=== PATIENT | male | born 1975 | race Caucasian/White ===

== ENCOUNTER 2020-02-29 00:04 | Emergency (ER) | payer OTHER, BC ==
[2020-02-29] MEDS ORDERED: Diphtheria,Pertussis(Acell),Tetanus Vaccine 0.5 ML Syringe IM ONE (00:20)
--- NOTE | 2020-02-29 00:20 | EDM.PDOC ---
ED HPI GENERAL MEDICAL PROBLEM - General Stated Complaint: PINCHED FINGER AND CUT IT OPEN Time Seen by Provider: 02/29/20 00:15 Source of Information: Reports: Patient - History of Present Illness INITIAL COMMENTS - FREE TEXT/NARRATIVE: ED ambulatory, states pinched finger when ricki stand collapsed at work while working on a truck. Laceration to fingertip, right 4th. No other injury, states wearing gloves. Right Finger-Ring Pain Score (Numeric/FACES): 1 - Related Data Allergies Allergy/AdvReac Type Severity Reaction Status Date / Time ciprofloxacin Allergy Diarrhea Verified 02/29/20 00:22 Home Meds: Home Meds . [No Known Home Meds] 02/29/20 [History] ED ROS GENERAL - Review of Systems Review Of Systems: Comprehensive ROS is negative, except as noted in HPI. ED EXAM, SKIN/RASH Exam: See Below Exam Limited By: No Limitations General Appearance: Alert, Mild Distress Ears: Normal External Exam Throat/Mouth: Normal Voice Neck: Full Range of Motion Respiratory/Chest: No Respiratory Distress Extremities: Normal Range of Motion Neurological: Alert, Oriented Skin: Warm, Wound/Incision (distal right 4th finger palmar 1 cm irregular superficial laceration apears consistent with report slight bruising lateral edge no nail involvment mild swelling) ED SKIN PROCEDURES - Laceration/Wound Repair Right Distal Digit - 4th (Ring) Appearance: Superficial, Irregular Anesthetic Type: Local Local Anesthesia - Lidocaine (Xylocaine): 1% Plain Local Anesthetic Volume: 1cc Skin Prep: Chlorhexidine (Hibiciens), Saline Closed with: Sutures Lac/Wound length In cm: 1 # of Sutures: 2 Suture Type: Nylon, Interrupted Sterile Dressing Applied: Nurse Tetanus Status Addressed: Yes Course - Vital Signs Last Recorded V/S: Last Vital Signs Temp 96.8 F L 02/29/20 00:13 Pulse 92 02/29/20 00:13 Resp 19 02/29/20 00:13 BP 133/78 02/29/20 00:13 Pulse Ox 99 02/29/20 00:13 - Orders/Labs/Meds Orders: Active Orders 24 hr Category Date Time Status Vaccines to be Administered [RC] PER UNIT ROUTINE Care 02/29/20 00:22 Active Fingers Fourth Digit Rt F8 [CR] Urgent Exams 02/29/20 00:23 Taken Meds: Medications Discontinued Medications Generic Name Dose Route Start Last Admin Trade Name Freq PRN Reason Stop Dose Admin Bacitracin 1 dose 02/29/20 00:38 Bacitracin Oint 1 Gm TOP 02/29/20 00:39 ONETIME ONE Diphtheria/Tetanus/Acell Pertussis 0.5 ml 02/29/20 00:20 02/29/20 00:27 Boostrix IM 02/29/20 00:21 0.5 ml .ONCE ONE Administration Lidocaine HCl 30 ml 02/29/20 00:51 02/29/20 00:55 Xylocaine-Mpf 1% INJECT 02/29/20 00:52 30 ml ONETIME ONE Administration Departure - Departure Time of Disposition: 01:05 Disposition: Home, Self-Care 01 Condition: Good Clinical Impression: Broken skin Crush injury to finger Qualifiers: Encounter type: initial encounter Qualified Code(s): S67.10XA - Crushing injury of unspecified finger(s), initial encounter - Discharge Information *PRESCRIPTION DRUG MONITORING PROGRAM REVIEWED*: No *COPY OF PRESCRIPTION DRUG MONITORING REPORT IN PATIENT YEISON: No Instructions: Sutures, Aleksey, or Adhesive Wound Closure, [id number], Crush Injury of the Hand, [id number] Additional Instructions: elevate bandaide dressing to finger, change at least twice daily wash with soap and water, sutures out 10-14 days follow up if redness swelling or drainage from wound may use tylenol or ibuprofen per label instructions for pain control Sepsis Event Note (ED) - Focused Exam Vital Signs: Vital Signs Temp Pulse Resp BP Pulse Ox 02/29/20 00:13 96.8 F L 92 19 133/78 99 - My Orders Last 24 Hours: My Active Orders 02/29/20 00:22 Vaccines to be Administered [RC] PER UNIT ROUTINE 02/29/20 00:23 Fingers Fourth Digit Rt F8 [CR] Urgent - Assessment/Plan Last 24 Hours: My Active Orders 02/29/20 00:22 Vaccines to be Administered [RC] PER UNIT ROUTINE 02/29/20 00:23 Fingers Fourth Digit Rt F8 [CR] Urgent
[2020-02-29] MEDS ORDERED: Bacitracin Oint 1 GM U/D Packet TOP ONE (00:38)
[2020-02-29] MEDS ORDERED: Lidocaine 1% 30 ML SDV INJECT ONE (00:51)
--- NOTE | 2020-02-29 01:19 | CR ---
PROCEDURE INFORMATION: Exam: XR Right Finger(s) Exam date and time: 02/29/2020 12:36 AM Age: 44 years old Clinical indication: Injury or trauma; Other: Crush injury; Wound; Right; Ring finger TECHNIQUE: Imaging protocol: XR Right fingers. Views: Minimum 2 views. COMPARISON: No relevant prior studies available. FINDINGS: Bones/joints: No fracture or dislocation. Soft tissues: Probable slight soft tissue swelling in the very distal 4th digit. IMPRESSION: No fracture.
== END 2020-02-29 01:15 | disposition home or self-care (01) ==
LOC: DL.ED 00:04
DX: S67.194A Crushing injury of right ring finger, initial encounter (principal); Z88.1 Allergy status to other antibiotic agents; Z23 Encounter for immunization; W23.0XXA Caught, crushed, jammed, or pinched between moving objects, initial encounter; Y99.0 Civilian activity done for income or pay
CPT/HCPCS: 12001; 73140; 90471; 90715; 99284; J2001; 99282

== ENCOUNTER 2020-03-25 03:51 | Emergency (ER) | payer OTHER, BC ==
[2020-03-25] MEDS ORDERED: Lidocaine 1% 30 ML SDV INJECT ONE (04:08)
[2020-03-25] MEDS ORDERED: Bacitracin Oint 1 GM U/D Packet TOP ONE (04:08)
--- NOTE | 2020-03-25 04:45 | EDM.PDOC ---
ED HPI GENERAL MEDICAL PROBLEM - General Chief Complaint: Laceration Stated Complaint: LEFT THUMB CUT DEEP Time Seen by Provider: 03/25/20 04:30 Source of Information: Reports: Patient, RN, RN Notes Reviewed History Limitations: Reports: No Limitations - History of Present Illness INITIAL COMMENTS - FREE TEXT/NARRATIVE: Patient presents to ER with complaint of laceration to the tip of the left thumb. States he was trying to remove a spark plug from a truck while at work. Patient states tetanus is up-to-date, as he had a laceration approximately a month ago that was sutured. Onset: Today, Sudden Left Finger-Thumb Pain Score (Numeric/FACES): 1 - Related Data Allergies Allergy/AdvReac Type Severity Reaction Status Date / Time ciprofloxacin Allergy Diarrhea Verified 02/29/20 00:22 Home Meds: Home Meds . [No Known Home Meds] 02/29/20 [History] Past Medical History - Past Health History Medical/Surgical History: Denies Medical/Surgical History Social & Family History - Family History Family Medical History: No Pertinent Family History - Tobacco Use Tobacco Use Status *Q: Never Tobacco User Second Hand Smoke Exposure: No - Caffeine Use Caffeine Use: Reports: Coffee - Recreational Drug Use Recreational Drug Use: No ED ROS GENERAL - Review of Systems Review Of Systems: Comprehensive ROS is negative, except as noted in HPI. ED EXAM, SKIN/RASH Exam: See Below Exam Limited By: No Limitations General Appearance: Alert, WD/WN, No Apparent Distress Eye Exam: Bilateral Eye: EOMI, Normal Inspection Ears: Normal External Exam, Hearing Grossly Normal Nose: Normal Inspection Throat/Mouth: Normal Inspection, Normal Voice, No Airway Compromise Head: Atraumatic, Normocephalic Neck: Normal Inspection, Supple, Non-Tender, Full Range of Motion Respiratory/Chest: No Respiratory Distress, Lungs Clear, Normal Breath Sounds, No Accessory Muscle Use, Chest Non-Tender Cardiovascular: Normal Peripheral Pulses, Regular Rate, Rhythm, No Edema, No Gallop, No JVD, No Murmur, No Rub Peripheral Pulses: 2+: Radial (L), Radial (R) GI/Abdominal: Normal Bowel Sounds, Soft, Non-Tender (Male) Exam: Deferred Rectal (Males) Exam: Deferred Back Exam: Normal Inspection, Full Range of Motion, NT Extremities: Normal Inspection, Normal Range of Motion, Non-Tender, No Pedal Edema, Normal Capillary Refill Neurological: Alert, Oriented, CN II-XII Intact, Normal Cognition, Normal Gait, Normal Reflexes, No Motor/Sensory Deficits Psychiatric: Normal Affect, Normal Mood Skin: Warm, Dry, Other (2cm laceration of tip of left thumb) Location, Skin: Upper Extremity, Left Lymphatic: No Adenopathy ED SKIN PROCEDURES - Laceration/Wound Repair Left Distal Digit - 1st (Thumb) Appearance: Subcutaneous Distal NVT: Neuro & Vascular Intact Anesthetic Type: Local Local Anesthesia - Lidocaine (Xylocaine): 1% Plain Local Anesthetic Volume: 2cc Skin Prep: Chlorhexidine (Hibiciens) Exploration/Debridement/Repair: Wound Explored, In a Bloodless Field, Explored to Base, No Foreign Material Found Closed with: Sutures Lac/Wound length In cm: 2 Suture Size: 4-0 # of Sutures: 5 Suture Type: Nylon, Interrupted Drain Placement: No Sterile Dressing Applied: Provider Tetanus Status Addressed: Yes Complications: No Course - Vital Signs Last Recorded V/S: Last Vital Signs Temp 96.2 F L 03/25/20 04:08 Pulse 81 03/25/20 04:08 Resp 17 03/25/20 04:08 BP 131/85 03/25/20 04:08 Pulse Ox 98 03/25/20 04:08 - Orders/Labs/Meds Meds: Medications Discontinued Medications Generic Name Dose Route Start Last Admin Trade Name Godwin PRN Reason Stop Dose Admin Bacitracin 1 dose 03/25/20 04:08 03/25/20 04:45 Bacitracin Oint 1 Gm TOP 03/25/20 04:09 1 dose ONETIME ONE Administration Lidocaine HCl 30 ml 03/25/20 04:08 03/25/20 05:20 Xylocaine-Mpf 1% INJECT 03/25/20 04:09 30 ml ONETIME ONE Administration - Radiology Interpretation Free Text/Narrative:: xray left thumb: PROCEDURE INFORMATION: Exam: XR Left Finger(s) Exam date and time: 03/25/2020 4:16 AM Age: 44 years old Clinical indication: Other: Laceration; Additional info: Cut, possible tuft FX TECHNIQUE: Imaging protocol: XR Left fingers. Views: Minimum 2 views. COMPARISON: No relevant prior studies available. FINDINGS: Bones/joints: Normal. Soft tissues: Normal. IMPRESSION: No acute findings. Thank you for allowing us to participate in the care of your patient. Dictated and Authenticated by: Bhaskar Lantigua MD 03/25/2020 4:50 AM Central Time ([place] & [place]) See rad report Departure - Departure Time of Disposition: 05:16 Disposition: Home, Self-Care 01 Condition: Good Clinical Impression: Laceration - Discharge Information *PRESCRIPTION DRUG MONITORING PROGRAM REVIEWED*: No *COPY OF PRESCRIPTION DRUG MONITORING REPORT IN PATIENT YEISON: No Instructions: Laceration Care, Adult, [id number], Sutures, Aleksey, or Adhesive Wound Closure, [id number] Referrals: Shy Diaz EKG MONITOR TECH [Primary Care Provider] - Forms: ED Department Discharge Additional Instructions: Keep area clean and dry Follow up with your primary care facility in 7-10 days for suture removal Monitor for signs of infection Sepsis Event Note (ED) - Evaluation Sepsis Screening Result: No Definite Risk
--- NOTE | 2020-03-25 04:50 | CR ---
PROCEDURE INFORMATION: Exam: XR Left Finger(s) Exam date and time: 03/25/2020 4:16 AM Age: 44 years old Clinical indication: Other: Laceration; Additional info: Cut, possible tuft FX TECHNIQUE: Imaging protocol: XR Left fingers. Views: Minimum 2 views. COMPARISON: No relevant prior studies available. FINDINGS: Bones/joints: Normal. Soft tissues: Normal. IMPRESSION: No acute findings.
== END 2020-03-25 05:10 | disposition home or self-care (01) ==
LOC: DL.ED 03:51
DX: S61.012A Laceration without foreign body of left thumb without damage to nail, initial encounter (principal); Z88.1 Allergy status to other antibiotic agents; W26.8XXA Contact with other sharp object(s), not elsewhere classified, initial encounter; Y92.89 Other specified places as the place of occurrence of the external cause; Y99.0 Civilian activity done for income or pay
CPT/HCPCS: 12001; 73140; 99283; J2001

== ENCOUNTER 2023-08-26 15:51 | Emergency (ER) | payer BC, OTHER ==
[2023-08-26] MEDS: Sodium Chloride 0.9% 10 ML Syringe FLUSH PRN (16:00)
[2023-08-26] MEDS ORDERED: Iopamidol 755 Mg/ML 100 ML Bottle IVPUSH ONE (16:13)
[2023-08-26] MEDS: HYDROmorphone 0.5 MG/0.5 ML Syringe IVPUSH ONE (16:16)
[2023-08-26 16:17] LABS: EOSINOPHILS PERCENT AUTO 2.6 % (1.0-3.0); HEMATOCRIT 45.4 % (40.0-54.0); HEMOGLOBIN 15.1 g/dL (14.0-18.0); LYMPHOCYTES PERCENT AUTO 40.2 % (20.5-50.1); MEAN CORPUSCULAR HEMOGLOBIN 29.2 pg (27.0-34.0); MEAN CORPUSCULAR HGB CONC 33.3 g/dL (33.0-35.0); MEAN CORPUSCULAR VOLUME 87.8 fL (80-100); MONOCYTES PERCENT AUTO 8.8 % (2-8); NEUTROPHILS PERCENT AUTO 47.4 % (42.2-75.2); PLATELET COUNT,PLT 408 10^3/uL (150-450); RED BLOOD CELL COUNT 5.17 10^6/uL (4.6-6.2); WHITE BLOOD CELL COUNT,WBC 8.6 10^3/uL (5.0-10.0)
[2023-08-26] MEDS: Ondansetron 4 MG/2 ML SDV IVPUSH ONE (16:20)
[2023-08-26] MEDS: Ketamine 500 mg/10 ML MDV IV ONE ×2 (16:27→18:00)
[2023-08-26] MEDS: Iopamidol 755 Mg/ML 100 ML Bottle IVPUSH ONE (16:28)
[2023-08-26 16:35] LABS: AMYLASE 61 U/L (25-115); LIPASE 29 U/L (16-77)
[2023-08-26 16:39] LABS: A/G RATIO 1.2; ALANINE AMINOTRANSFERASE,ALT 30 U/L (16-63); ALBUMIN 4.3 g/dL (3.4-5.0); ALKALINE PHOSPHATASE 70 U/L (46-116); ANION GAP 16.2 mEq/L (7-13); ASPARTATE AMNIOTRANSFERASE,AST 17 U/L (15-37); BILIRUBIN TOTAL 0.6 mg/dL (0.2-1.0); BLOOD UREA NITROGEN,BUN 10 mg/dL (7-18); BUN/CREATININE RATIO 8.5 (No establ ref range); CALCIUM 8.7 mg/dL (8.5-10.1); CARBON DIOXIDE,CO2 26 mmol/L (21-32); CHLORIDE,CL 102 mmol/L (98-107); CREATININE 1.18 mg/dL (0.70-1.30); GLUCOSE RANDOM 204 mg/dL (70-99); POTASSIUM,K 3.2 mmol/L (3.5-5.1); PROTEIN TOTAL,TP 7.8 g/dL (6.4-8.2); SODIUM,NA 141 mmol/L (136-145)
[2023-08-26 16:41] LABS: ESTIMATED GFR 76 mL/min (>=60)
[2023-08-26 16:41] LABS: APPEARANCE,URINE SLIGHTLY CLOUDY (CLEAR); BILIRUBIN,URINE NEGATIVE (NEGATIVE); COLOR,URINE YELLOW (YELLOW); GLUCOSE,URINE NEGATIVE (NEGATIVE); KETONES,URINE NEGATIVE (NEGATIVE); LEUKOCYTE ESTERASE,URINE NEGATIVE (NEGATIVE); NITRITE,URINE NEGATIVE (NEGATIVE); OCCULT BLOOD,URINE LARGE (NEGATIVE); PH,URINE 5.5 (5.0-9.0); PROTEIN,URINE 30 (NEGATIVE); UROBILINOGEN,URINE 0.2 mg/dL (0.2-1.0)
[2023-08-26 16:44] LABS: LACTIC ACID 4.3 mmol/L (0.4-2.0)
[2023-08-26 16:58] LABS: RBC,URINE PACKED /HPF (0-5); WBC,URINE 0-5 /HPF (0-5/HPF)
[2023-08-26 16:59] LABS: BACTERIA,URINE FEW /HPF (0-FEW/HPF); EPITHELIAL CELLS,URINE FEW /HPF (NOT SEEN); MUCUS,URINE MODERATE /LPF (NOT SEEN)
[2023-08-26] MEDS: Ketorolac 30 MG/ML SDV IVPUSH ONE (17:02)
[2023-08-26] MEDS: Take Home: Acetaminophen/HYDROcodone 325-5 MG, 5 Tab Pack PO ONE (18:47)
[2023-08-26] MEDS: Take Home: Tamsulosin HCl 0.4 MG, 6 Cap Pack PO ONE (18:47)
== END 2023-08-26 18:53 | disposition home or self-care (01) ==
LOC: DL.ED 15:51
DX: N13.2 Hydronephrosis with renal and ureteral calculous obstruction (principal); R16.0 Hepatomegaly, not elsewhere classified; Z88.1 Allergy status to other antibiotic agents
CPT/HCPCS: 36415; 71275; 74175; 74176; 80053; 81001; 82150; 83605; 83690; 85025; 86850; 86900; 86901; 96374; 96375; 96376; 99284; 99284-25; A9270-GY; C1758; J1170; J1885; J2405; J3490; Q9967